=== PATIENT | female | born 1950 | race Hispanic/Latino ===

== ENCOUNTER → 2017-12-08 | Outpatient (CLI) | payer OTHER ==
--- NOTE | 2017-12-09 11:20 | Diagnostic Imaging Report ---
Thyroid Scan with Multiple Uptakes Reason for exam: 67 F with hypothyroidism (TSH 83.24 uIU/mL). Radiopharmaceutical: I-123 Brie 0.28 mCi Report: After oral administration of I-123 Brie, the 6-hour thyroid uptake of iodine is 1.7% (normal 4-14%) and the 24-hour uptake is 1.1% (normal 10-35%). Images of the thyroid was obtained in the anterior and anterior oblique projections. The quality of the images is suboptimal due to the low thyroid uptake of iodine. The thyroid lobes appear symmetric in size. There is homogeneous distribution of tracer activity throughout both lobes. No focal areas of increased or decreased tracer activity are identified within the thyroid lobes or isthmus. The thyroid is in a normal anatomic location. A pyramidal lobe is not seen. There is no aberrant functioning thyroid tissue seen in the area scanned. Impression: 1. Low thyroid uptake of iodine is consistent with known hypothyroidism. 2. No scan evidence of nodular thyroid disease. Signed by: Dr. Amanda Mullins M.D. on 12/09/2017 11:17 AM
== END ==
LOC: NM 09:01
PROVIDERS: ATTEND Family Medicine
DX: E03.9 Hypothyroidism, unspecified (principal)
CPT/HCPCS: 78014; A9516

== ENCOUNTER 2021-08-08 19:03 | Emergency (ER) | payer MEDICARE, OTHER ==
[~2021-08-08] VITALS: Ht 154.9 cm; Wt 74.8 kg
== END 2021-08-08 19:50 | disposition home or self-care (01) ==
LOC: ER 19:08
DX: R20.2 Paresthesia of skin (principal); E78.5 Hyperlipidemia, unspecified
CPT/HCPCS: 99282